=== PATIENT | male | born 1950 | race Caucasian/White ===

== ENCOUNTER 2018-10-04 08:34 | Day surgery (SDC) ==
--- NOTE | 2018-09-28 15:33 | EKG Report ---
Test Performed on : 09/28/2018 3:23:44 PM Test Reason : PAT Blood Pressure : / mmHG Vent. Rate : 063 BPM Atrial Rate : 063 BPM P-R Int : 152 ms QRS Dur : 098 ms QT Int : 426 ms P-R-T Axes : 051 039 016 degrees QTc Int : 435 ms Normal sinus rhythm. with sinus arrhythmia. Normal ECG No previous ECGs available Confirmed by Emeli Christy MD ([id number]) on 10/01/2018 9:32:20 PM
[2018-09-28 15:45] LABS: HEMATOCRIT 42.9 % (42.0-52.0); HEMOGLOBIN 14.8 g/dL (14.0-18.0); MCH 31.5 PG (27-31); MCHC 34.5 g/dL (33-37); MCV 91.3 FL (81-99); MPV 9.6 FL (7.4-10.4); RBC 4.7 XMIL (4.7-6.1); RDW 12.4 % (11.5-14.5); WBC 8.5 X1000 (4.8-10.8)
[2018-09-28 16:08] LABS: CALCIUM 9.6 mg/dL (8.8-10.2); CREATININE 1.8 mg/dL (0.7-1.2); POTASSIUM 4.1 mmol/L (3.5-5.1)
[2018-10-04] MEDS ORDERED: KEFZOL 1 GM/D5W 2 GM/100 ML IVPB ONE (08:47)
[2018-10-04] MEDS ORDERED: REGLAN ONE (08:47)
[2018-10-04] MEDS ORDERED: LR 1,000 ML ONE ×2 (08:47→11:41)
[2018-10-04] MEDS ORDERED: PEPCID ONE (08:47)
[2018-10-04] MEDS ORDERED: DIPRIVAN 1% ONE (09:07)
[2018-10-04] MEDS ORDERED: XYLOCAINE-MPF 2% ONE (09:07)
[2018-10-04] MEDS ORDERED: DECADRON ONE (09:48)
[2018-10-04] MEDS ORDERED: ZOFRAN ONE (09:48)
[2018-10-04] MEDS ORDERED: FENTANYL ONE (09:51)
[2018-10-04] MEDS ORDERED: OFIRMEV 1000 MG/ISOTONIC SOLN 1,000 MG/100 ML BOTTLE ONE (10:02)
[2018-10-04] MEDS ORDERED: B & O 15A SUPP ONE (10:39)
[2018-10-04] MEDS: DILAUDID ONE ×4 (11:41→12:04)
--- NOTE | 2018-10-04 13:20 | OPERATIVE NOTE ---
PROCEDURE DATE: 10/04/2018 PREOPERATIVE DIAGNOSES: 1. Urinary retention. 2. Benign prostatic hyperplasia. POSTOPERATIVE DIAGNOSES: 1. Urinary retention. 2. Benign prostatic hyperplasia. PROCEDURES PERFORMED: 1. Cystoscopy. 2. Transurethral resection of prostate. SURGEON: Dr. Gideon Jha. [employer] OPERATOR: None. COMPLICATIONS: None. ESTIMATED BLOOD LOSS: 20 mL. DRAINS: 20-Australian three-way catheter. SPECIMENS REMOVED: Prostate. ANESTHESIA: LMA. OPERATIVE FINDINGS: The patient had a normal urethra. No stricture disease or papillary lesions. The patient's prostate was quite large with obstructing tissue; it measured over 50 g. The patient had a small median lobe. On inspection of the bladder, there was no obvious diverticulum, but multiple small trabeculations and cellules. Both ureteral orifices were visualized effluxing clear yellow urine. No papillary lesions were seen throughout the bladder. The patient underwent uneventful resection of his prostate and good hemostasis was obtained. The patient's catheter was placed with ease and patient started on continuous bladder irrigation. INDICATIONS FOR PROCEDURE: Mr. Matos is a 67-year-old who has had intermittent lower abdominal pain and urinary retention over the past several months. Patient has failed multiple voiding trials, as well as changes in p.o. medications. After long discussion, the patient desired surgical intervention. Discussed risks, benefits, alternatives of procedure including stricture disease, hematuria, dysuria, incontinence, need for secondary procedures or inability to urinate. After thorough discussion, patient and his elected to proceed. DESCRIPTION OF PROCEDURE: After informed consent was obtained, the patient was brought to the operating room and placed on the operating table in the supine position. Received preoperative antibiotics and underwent LMA placement. The patient was then placed into a dorsal lithotomy position, was prepped and draped in usual sterile fashion. A preop time-out was performed. All parties in agreement, including anesthesia, surgical, nursing staff, at which point I inserted a 21-Australian cystourethroscope through the urethra into the bladder. Patient had normal urethra, no stricture disease or papillary lesions. The patient's prostate was enlarged with evidence of obstructing tissue from the lateral lobes. Patient had a small median lobe. Once inside the bladder, the patient's bladder was inspected. The patient had evidence of trabeculations and small cellules. No obvious diverticulum or papillary lesions. No bladder stones were visualized. The cystourethroscope was removed. Resectoscope element was then passed through the urethra with ease using internal obturator and into the bladder. Once there, the resectoscope element was obtained and, starting in median lobe and resecting down to the verumontanum, resection was undertaken. This was carried down to the capsule at the verumontanum. After this, attention was placed to the left lateral lobe. This was resected from 6 to the 12 o'clock position, and a large amount of obstructing lateral lobe tissue was resected. This was carried all the way down to the verumontanum on the left side. Attention was placed to the right side and similar resection was performed. Good hemostasis was obtained and a large amount of tissue was extracted. Using the Ellik, this was removed and all the prostate chips were obtained and sent for analysis. Multiple cyclings of the bladder were undertaken and good hemostasis was seen. No obvious residual fragments were seen within the bladder. Good hemostasis was obtained using electrocautery. Both ureteral orifices were seen far away from the resecting portion of the prostate and had good efflux of clear, yellow urinary output. The patient's bladder was left full, and a good urinary stream was obtained after removal of resectoscope element. A 22-Australian three-way catheter was easily inserted into the bladder with drainage of clear irrigant. Total of 30 mL of sterile water were placed into the balloon and placed to gravity drainage. The patient was awoken and was taken to recovery in stable condition. The patient will continue on bladder irrigation overnight and place to have catheter removed tomorrow for a voiding trial. cc: Gideon Jha MD MTDD
[2018-10-04] MEDS ORDERED: MORPHINE IV PRN (13:37)
[2018-10-04] MEDS ORDERED: NORCO-5 PO PRN (13:45)
[2018-10-04] MEDS ORDERED: LABETALOL IV PRN (13:45)
[2018-10-04] MEDS ORDERED: ZOFRAN IV PRN (13:45)
[2018-10-04] MEDS: LR 1,000 ML IV SCH ×2 (14:30→20:18)
[2018-10-04] MEDS: KEFZOL 1 GM/D5W 1 GM/50 ML IVPB IV SCH (17:05)
[2018-10-04] MEDS: COLACE PO SCH (20:11)
[2018-10-04] MEDS ORDERED: XALATAN 0.005% OPH SOLN BOTH EYES SCH (21:00)
[2018-10-04] MEDS ORDERED: ALPHAGAN P 0.1% OPHTH SOLN BOTH EYES SCH (21:00)
[2018-10-05] MEDS: LR 1,000 ML IV SCH (00:42)
[2018-10-05 06:29] LABS: HEMOGLOBIN 12.7 g/dL (14.0-18.0); MCH 31.4 PG (27-31); MCHC 34.3 g/dL (33-37); MCV 91.6 FL (81-99); MPV 9.9 FL (7.4-10.4); RBC 4.04 XMIL (4.7-6.1); RDW 12.3 % (11.5-14.5); WBC 16.16 X1000 (4.8-10.8)
[2018-10-05 06:43] LABS: CALCIUM 8.3 mg/dL (8.8-10.2); CREATININE 1.6 mg/dL (0.7-1.2); POTASSIUM 3.8 mmol/L (3.5-5.1)
--- NOTE | 2018-10-05 07:40 | PROGRESS NOTE ---
DATE: 10/05/2018 SUBJECTIVE: No acute events overnight. The patient underwent transurethral resection of prostate yesterday. The patient tolerated it well. The patient was on CBI overnight with no clots or needing to be irrigated. He denies any penile or bladder pain today. His urethral catheter is draining well with light pink to clear irrigant. Did not sleep well last night due to interruptions. OBJECTIVE: Vital signs: Temperature 97.8 degrees, heart rate 51, blood pressure 108/60, oxygen saturation 95% on room air. General: No acute distress. Resting comfortably in bed, alert and oriented x3. Respiratory: Good respiratory effort without audible wheezing overall. Abdomen: Soft, nontender, nondistended. No palpable masses or hepatosplenomegaly. : No suprapubic tenderness. No CVA tenderness. Urethral catheter in place draining clear irrigant, light yellow tinged. MUSCULOSKELETAL: Moving all extremities. LABS: White blood cell count 16.2, hemoglobin 12.7, hematocrit 37.0, platelets 282,000. Sodium 139, potassium 3.8, chloride 106, bicarbonate 23, BUN 17, creatinine 1.6, glucose 147. ASSESSMENT AND PLAN: Mr. Maots is a 67-year-old with benign prostatic hypertrophy, depression, and history of urinary retention. The patient has failed multiple voiding trials in the office and underwent transurethral resection of prostate yesterday. The patient tolerated the procedure well. His urine is light clear to light pink this morning, draining well through the catheter. He denies any significant pain. The patient's catheter was removed this morning. We will see if he is able to urinate after removal of his catheter. Will perform bladder scan after the patient voids. The patient's creatinine today is stable at 1.6. White blood cell count is within normal limits at 16. The patient remains afebrile with stable vital signs. Will continue to monitor. Will ensure the patient can void today after his catheter was removed. If unable to urinate, will have to replace an indwelling catheter. Encouraged him to continue on Flomax 0.8 mg at this time. Will plan to discharge with antibiotics, home medications, and followup. cc: MD JUAN Aguayo
[2018-10-05 07:44] VITALS: BP 142/82
[2018-10-05] MEDS: KEFZOL 1 GM/D5W 1 GM/50 ML IVPB IV SCH ×2 (08:03)
[2018-10-05] MEDS: COLACE PO SCH (08:04)
[2018-10-05] MEDS ORDERED: NORVASC PO SCH (09:00)
[2018-10-05] MEDS ORDERED: FLOMAX PO SCH (09:00)
== END 2018-10-05 09:15 | disposition home or self-care (01) ==
LOC: OR 08:34 → 4N 08:34 → OR 10-05 09:15
PROVIDERS: ATTEND Urology
PROC: UR.TURP (2018-10-04 09:38)